=== PATIENT | female | born 1950 | race Caucasian/White ===

== ENCOUNTER 2022-06-10 13:14 | Inpatient (IN) | payer OTHER, MEDICAID ==
[~2022-06-10] VITALS: Ht 157.5 cm; Wt 69.7 kg
[2022-06-10 18:21] LABS: Basophils # (auto) 0 10 ^3/uL (0-0.2); Eosinophils # (auto) 0.4 10 ^3/uL (0-0.8); Eosinophils % (auto) 3.7 % (0.0-7.0); Hematocrit 42.1 % (36.0-46.0); Hemoglobin 13.8 g/dL (12.2-16.2); Lymphocytes # (auto) 1.3 10 ^3/uL (0.4-5.4); Lymphocytes % (auto) 11.8 % (10.0-50.0); Mean Corpuscular Hemoglobin 30.1 pg (28.0-32.0); Mean Corpuscular Hgb Conc. 32.8 g/dL (32.0-36.0); Mean Corpuscular Volume 91.7 fL (80.0-100.0); Monocytes # (auto) 0.9 10 ^3/uL (0-1.3); Monocytes % (auto) 8.4 % (0.0-12.0); Neutrophils # (auto) 8.5 10 ^3/uL (1.6-8.6); Neutrophils % (auto) 76.1 % (37.0-80.0); Nucleated Red Blood Cells % 0.2 %; Red Blood Cells 4.59 10^6/uL (4.0-5.20); Red Cell Distribution Width 14.1 % (11.8-14.3); White Blood Cell 11.1 10^3/uL (4.4-10.8)
[2022-06-10 18:34] LABS: Potassium 3.5 mmol/L (3.5-5.1)
[2022-06-10 18:41] LABS: Albumin 3.6 g/dL (3.4-5.0); Bilirubin, Total 0.5 mg/dL (0.2-1.0); Calcium 9.3 mg/dL (8.5-10.1); Total Protein 7.4 g/dL (6.4-8.2)
[2022-06-10 21:21] LABS: INR 0.96 (0.9-1.15); Partial Thromboplastin Time 24.9 sec (24.6-33.4)
[2022-06-10] MEDS ORDERED: HYDROcodone-ACET 5/325MG TAB PO PRN (23:30)
[2022-06-10] MEDS ORDERED: MORPHINE SULFATE INJ 2 MG/ml SYRG IV PRN (23:30)
[2022-06-10] MEDS ORDERED: NITROGLYCERIN 0.4 MG SL TAB SL PRN (23:30)
[2022-06-10] MEDS ORDERED: ONDANSETRON HCL 4 MG/2 ML VIAL IV PRN (23:30)
[2022-06-10] MEDS ORDERED: SOD CHL 0.45% 1,000 ML IV SCH (23:30)
[2022-06-10] MEDS ORDERED: cefTRIAXone 1GM/50ML D5W 50 ML IV ONE (23:30)
[2022-06-10] MEDS ORDERED: DOCUSATE SOD 100 MG CAP PO PRN (23:30)
[2022-06-10] MEDS ORDERED: ACETAMINOPHEN 325 MG TAB PO PRN (23:30)
[2022-06-11] VITALS (7 sets, daily range): BP systolic 111–136; BP diastolic 45–66
[2022-06-11] MEDS: MORPHINE SULFATE INJ 2 MG/ml SYRG IV PRN ×2 (01:23→10:59)
[2022-06-11] MEDS ORDERED: LEVOTHYROXINE SODIUM 88 MCG TAB PO SCH (07:00)
[2022-06-11] MEDS ORDERED: ENOXAPARIN SOD 40 MG/0.4 ML SYRINGE SC SCH (10:00)
[2022-06-11 11:39] LABS: Basophils # (auto) 0 10 ^3/uL (0-0.2); Basophils % (auto) 0.3 % (0.0-2.0); Eosinophils # (auto) 0 10 ^3/uL (0-0.8); Eosinophils % (auto) 0.6 % (0.0-7.0); Hematocrit 38.7 % (36.0-46.0); Lymphocytes # (auto) 1.2 10 ^3/uL (0.4-5.4); Lymphocytes % (auto) 15.6 % (10.0-50.0); Mean Corpuscular Hemoglobin 30.5 pg (28.0-32.0); Mean Corpuscular Hgb Conc. 33.7 g/dL (32.0-36.0); Mean Corpuscular Volume 90.6 fL (80.0-100.0); Monocytes # (auto) 0.5 10 ^3/uL (0-1.3); Monocytes % (auto) 6.7 % (0.0-12.0); Neutrophils # (auto) 5.8 10 ^3/uL (1.6-8.6); Neutrophils % (auto) 76.8 % (37.0-80.0); Red Blood Cells 4.27 10^6/uL (4.0-5.20); Red Cell Distribution Width 14.3 % (11.8-14.3); White Blood Cell 7.5 10^3/uL (4.4-10.8)
[2022-06-11 11:44] LABS: Albumin 3.1 g/dL (3.4-5.0); Calcium 8.8 mg/dL (8.5-10.1); Potassium 3.7 mmol/L (3.5-5.1)
[2022-06-11 11:49] LABS: BUN/Creatinine Ratio 19.3; Bilirubin, Total 0.8 mg/dL (0.2-1.0); Total Protein 6.7 g/dL (6.4-8.2)
[2022-06-11] MEDS ORDERED: cefTRIAXone 1GM/50ML D5W 50 ML IV SCH (22:00)
== END 2022-06-11 18:30 | disposition short-term general hospital (02) | DRG 563 ==
LOC: EDBD 13:14 → ER 13:14 → OVERFLOW 23:25 → EAST 23:42
PROVIDERS: ADMIT Nurse Practitioner Family; ATTEND Internal Medicine
DX: S82.141A Displaced bicondylar fracture of right tibia, initial encounter for closed fracture (principal); S52.501A Unspecified fracture of the lower end of right radius, initial encounter for closed fracture; S52.601A Unspecified fracture of lower end of right ulna, initial encounter for closed fracture; H91.90 Unspecified hearing loss, unspecified ear; D72.829 Elevated white blood cell count, unspecified; I12.9 Hypertensive chronic kidney disease with stage 1 through stage 4 chronic kidney disease, or unspecified chronic kidney disease; J43.9 Emphysema, unspecified; W18.2XXA Fall in (into) shower or empty bathtub, initial encounter; Z20.822 Contact with and (suspected) exposure to COVID-19; N18.9 Chronic kidney disease, unspecified; E78.5 Hyperlipidemia, unspecified; Z98.51 Tubal ligation status; Z90.49 Acquired absence of other specified parts of digestive tract; Y92.091 Bathroom in other non-institutional residence as the place of occurrence of the external cause; Z90.13 Acquired absence of bilateral breasts and nipples; Z85.3 Personal history of malignant neoplasm of breast; Y99.8 Other external cause status; Y93.E1 Activity, personal bathing and showering
CPT/HCPCS: 36415; 71045; 73110; 73502; 73562; 73700; 80053; 84443; 84484; 85025; 85610; 85730; 93005; G0378; J0696

== ENCOUNTER 2023-03-13 22:50 | Inpatient (IN) | payer OTHER, MEDICAID ==
[~2023-03-13] VITALS: Ht 167.6 cm; Wt 65.6 kg
[2023-03-13 23:30] VITALS: BP 122/54
[2023-03-14] MEDS ORDERED: ONDANSETRON HCL 4 MG/2 ML VIAL IV PRN (01:30)
[2023-03-14] MEDS ORDERED: ACETAMINOPHEN 325 MG TAB PO PRN (01:30)
[2023-03-14 03:00] LABS: Basophils # (auto) 0 10 ^3/uL (0-0.2); Basophils % (auto) 0.3 % (0.0-2.0); Eosinophils # (auto) 0.1 10 ^3/uL (0-0.8); Eosinophils % (auto) 0.7 % (0.0-7.0); Hematocrit 34.8 % (36.0-46.0); Hemoglobin 11.4 g/dL (12.2-16.2); Lymphocytes # (auto) 1.3 10 ^3/uL (0.4-5.4); Lymphocytes % (auto) 18.2 % (10.0-50.0); Mean Corpuscular Hemoglobin 30.1 pg (28.0-32.0); Mean Corpuscular Hgb Conc. 32.8 g/dL (32.0-36.0); Mean Corpuscular Volume 91.7 fL (80.0-100.0); Monocytes # (auto) 0.5 10 ^3/uL (0-1.3); Monocytes % (auto) 6.5 % (0.0-12.0); Neutrophils # (auto) 5.5 10 ^3/uL (1.6-8.6); Neutrophils % (auto) 74.3 % (37.0-80.0); Nucleated Red Blood Cells % 0.1 %; Red Cell Distribution Width 14.1 % (11.8-14.3); White Blood Cell 7.4 10^3/uL (4.4-10.8)
[2023-03-14 03:08] LABS: Alanine Aminotransferase 14 U/L (13-56); Anion Gap 7 (5-15); Aspartate Aminotransferase 17 U/L (15-37); Blood Urea Nitrogen 17 mg/dL (7-18); Calcium 8.7 mg/dL (8.5-10.1); Carbon Dioxide 28 mmol/L (21-32); Chloride 102 mmol/L (98-107); GFR African American 119 mL/min; GFR Non-African American 98 mL/min; Glucose 117 mg/dL (74-106); Potassium 3.9 mmol/L (3.5-5.1); Sodium 137 mmol/L (136-145)
[2023-03-14 03:11] LABS: Alkaline Phosphatase 35 U/L (45-117); Bilirubin, Total 0.7 mg/dL (0.2-1.0); Total Protein 6.5 g/dL (6.4-8.2)
[2023-03-14 03:15] LABS: INR 1.05 (0.9-1.15); Partial Thromboplastin Time 26.9 sec (24.6-33.4)
[2023-03-14 03:33] VITALS: BP 122/54
[2023-03-14] MEDS ORDERED: ACET-1156 PO (04:08)
[2023-03-14] MEDS ORDERED: HEP5000I IV (04:14)
[2023-03-14] MEDS ORDERED: LEVO88TA4 PO (04:14)
[2023-03-14] MEDS ORDERED: HYDR-4902 PO (04:14)
[2023-03-14] MEDS ORDERED: SENN1TAB14 PO (04:20)
[2023-03-14] MEDS ORDERED: TRIATAB3 OR (04:20)
[2023-03-14] MEDS ORDERED: ONDA4INJ5 IJ (04:20)
[2023-03-14 05:00] VITALS: BP 111/41
[2023-03-14] MEDS: HYDROcodone-ACET 5/325MG TAB PO PRN ×3 (06:05→22:03)
[2023-03-14] MEDS: LEVOTHYROXINE SODIUM 88 MCG TAB PO SCH (06:05)
[2023-03-14] MEDS: TRIAMTERENE/HCTZ 37.5/25 MG CAP/TAB PO SCH (10:00)
[2023-03-14] MEDS ORDERED: SODIUM CHLORIDE 0.9% 500 ML IV ONE (11:15)
[2023-03-14] MEDS: PANTOPRAZOLE 40 MG TAB PO SCH (11:32)
[2023-03-14] MEDS: MORPHINE SULFATE INJ 2 MG/ml SYRG IV PRN (16:42)
[2023-03-14 20:00] VITALS: BP 115/41
[2023-03-14 22:00] VITALS: BP 115/41
[2023-03-14] MEDS: ATORVASTATIN 20 MG TAB PO SCH (22:00)
[2023-03-15 05:00] VITALS: BP 102/40
[2023-03-15 05:57] LABS: Basophils # (auto) 0 10 ^3/uL (0-0.2); Basophils % (auto) 0.1 % (0.0-2.0); Eosinophils # (auto) 0.1 10 ^3/uL (0-0.8); Eosinophils % (auto) 1.4 % (0.0-7.0); Hematocrit 29.9 % (36.0-46.0); Hemoglobin 9.8 g/dL (12.2-16.2); Lymphocytes # (auto) 1.4 10 ^3/uL (0.4-5.4); Lymphocytes % (auto) 26.2 % (10.0-50.0); Mean Corpuscular Hemoglobin 30.1 pg (28.0-32.0); Mean Corpuscular Hgb Conc. 32.9 g/dL (32.0-36.0); Mean Corpuscular Volume 91.7 fL (80.0-100.0); Monocytes # (auto) 0.4 10 ^3/uL (0-1.3); Monocytes % (auto) 7.2 % (0.0-12.0); Neutrophils # (auto) 3.5 10 ^3/uL (1.6-8.6); Neutrophils % (auto) 65.1 % (37.0-80.0); Nucleated Red Blood Cells % 0.1 %; Red Blood Cells 3.26 10^6/uL (4.0-5.20); Red Cell Distribution Width 14.2 % (11.8-14.3); White Blood Cell 5.4 10^3/uL (4.4-10.8)
[2023-03-15 06:12] LABS: Potassium 3.6 mmol/L (3.5-5.1)
[2023-03-15 06:21] LABS: Albumin 2.6 g/dL (3.4-5.0); BUN/Creatinine Ratio 27.7 (10.0-20.0); Bilirubin, Total 0.3 mg/dL (0.2-1.0); Total Protein 5.6 g/dL (6.4-8.2)
[2023-03-15] MEDS: LEVOTHYROXINE SODIUM 88 MCG TAB PO SCH (06:35)
[2023-03-15] MEDS: HYDROcodone-ACET 5/325MG TAB PO PRN (06:35)
[2023-03-15 09:00] VITALS: BP 103/33
[2023-03-15] MEDS: PANTOPRAZOLE 40 MG TAB PO SCH (09:47)
[2023-03-15] MEDS: TRIAMTERENE/HCTZ 37.5/25 MG CAP/TAB PO SCH (09:48)
[2023-03-15] MEDS: LEVOTHYROXINE SODIUM 100 MCG/5 ML INJ IV SCH (09:48)
[2023-03-15] MEDS ORDERED: ERGOCALCIFEROL 50,000 UNIT(1.25MG) CAP PO SCH (10:00)
[2023-03-15 13:00] VITALS: BP 106/31
[2023-03-15 16:36] VITALS: BP 106/27
[2023-03-15 20:00] VITALS: BP 112/44
[2023-03-15] MEDS: ATORVASTATIN 20 MG TAB PO SCH (21:12)
[2023-03-16] VITALS (7 sets, daily range): BP systolic 103–118; BP diastolic 33–49
[2023-03-16] MEDS: HYDROcodone-ACET 5/325MG TAB PO PRN (06:06)
[2023-03-16 10:15] LABS: Basophils # (auto) 0 10 ^3/uL (0-0.2); Basophils % (auto) 0.1 % (0.0-2.0); Eosinophils # (auto) 0.1 10 ^3/uL (0-0.8); Eosinophils % (auto) 1.6 % (0.0-7.0); Hematocrit 28.9 % (36.0-46.0); Hemoglobin 9.5 g/dL (12.2-16.2); Lymphocytes # (auto) 1.6 10 ^3/uL (0.4-5.4); Lymphocytes % (auto) 23.6 % (10.0-50.0); Mean Corpuscular Hemoglobin 30.6 pg (28.0-32.0); Mean Corpuscular Volume 92.7 fL (80.0-100.0); Monocytes # (auto) 0.4 10 ^3/uL (0-1.3); Neutrophils # (auto) 4.7 10 ^3/uL (1.6-8.6); Neutrophils % (auto) 68.7 % (37.0-80.0); Nucleated Red Blood Cells % 0.1 %; Red Blood Cells 3.12 10^6/uL (4.0-5.20); White Blood Cell 6.9 10^3/uL (4.4-10.8)
[2023-03-16] MEDS: PANTOPRAZOLE 40 MG TAB PO SCH (10:15)
[2023-03-16] MEDS: TRIAMTERENE/HCTZ 37.5/25 MG CAP/TAB PO SCH (10:15)
[2023-03-16] MEDS: LEVOTHYROXINE SODIUM 100 MCG/5 ML INJ IV SCH (10:15)
[2023-03-16 10:26] LABS: BUN/Creatinine Ratio 25.4 (10.0-20.0); Calcium 8.2 mg/dL (8.5-10.1); Magnesium 2.2 mg/dL (1.6-2.6); Potassium 3.7 mmol/L (3.5-5.1)
[2023-03-16] MEDS: MORPHINE SULFATE INJ 2 MG/ml SYRG IV PRN (13:31)
[2023-03-16] MEDS ORDERED: ENOXAPARIN SOD 40 MG/0.4 ML SYRINGE SC ONE (17:45)
[2023-03-16] MEDS: ATORVASTATIN 20 MG TAB PO SCH (21:19)
[2023-03-17] VITALS (7 sets, daily range): BP systolic 97–149; BP diastolic 34–51
[2023-03-17] MEDS: HYDROcodone-ACET 5/325MG TAB PO PRN (08:23)
[2023-03-17] MEDS: TRIAMTERENE/HCTZ 37.5/25 MG CAP/TAB PO SCH (10:03)
[2023-03-17] MEDS: LEVOTHYROXINE SODIUM 100 MCG/5 ML INJ IV SCH (10:03)
[2023-03-17] MEDS: PANTOPRAZOLE 40 MG TAB PO SCH (10:03)
[2023-03-17 10:13] LABS: Basophils # (auto) 0 10 ^3/uL (0-0.2); Basophils % (auto) 0.1 % (0.0-2.0); Eosinophils # (auto) 0.1 10 ^3/uL (0-0.8); Eosinophils % (auto) 1.9 % (0.0-7.0); Hematocrit 30.7 % (36.0-46.0); Hemoglobin 10.3 g/dL (12.2-16.2); Lymphocytes # (auto) 1.5 10 ^3/uL (0.4-5.4); Mean Corpuscular Hemoglobin 30.6 pg (28.0-32.0); Mean Corpuscular Hgb Conc. 33.5 g/dL (32.0-36.0); Mean Corpuscular Volume 91.4 fL (80.0-100.0); Monocytes # (auto) 0.5 10 ^3/uL (0-1.3); Neutrophils # (auto) 4.8 10 ^3/uL (1.6-8.6); Nucleated Red Blood Cells % 0.1 %; Red Blood Cells 3.36 10^6/uL (4.0-5.20); Red Cell Distribution Width 14.2 % (11.8-14.3); White Blood Cell 6.9 10^3/uL (4.4-10.8)
[2023-03-17] MEDS: ENOXAPARIN SOD 40 MG/0.4 ML SYRINGE SC SCH (10:18)
[2023-03-17 10:33] LABS: Potassium 3.6 mmol/L (3.5-5.1)
[2023-03-17 10:43] LABS: BUN/Creatinine Ratio 30.9 (10.0-20.0); Calcium 8.3 mg/dL (8.5-10.1)
[2023-03-17] MEDS: ATORVASTATIN 20 MG TAB PO SCH (22:18)
[2023-03-18] MEDS: MORPHINE SULFATE INJ 2 MG/ml SYRG IV PRN ×2 (04:42→09:23)
[2023-03-18 05:00] VITALS: BP 127/52
[2023-03-18 08:00] VITALS: BP 122/57
[2023-03-18 09:23] VITALS: BP 122/57
[2023-03-18] MEDS: TRIAMTERENE/HCTZ 37.5/25 MG CAP/TAB PO SCH (09:23)
[2023-03-18] MEDS: LEVOTHYROXINE SODIUM 100 MCG/5 ML INJ IV SCH (09:23)
[2023-03-18] MEDS: ENOXAPARIN SOD 40 MG/0.4 ML SYRINGE SC SCH (09:23)
[2023-03-18] MEDS: PANTOPRAZOLE 40 MG TAB PO SCH (09:23)
== END 2023-03-18 11:10 | DRG 563 ==
LOC: TELE-EAST 23:43 → EAST 03-14 17:23
PROVIDERS: ADMIT Nurse Practitioner; ATTEND Internal Medicine
DX: S42.211A Unspecified displaced fracture of surgical neck of right humerus, initial encounter for closed fracture (principal); I12.9 Hypertensive chronic kidney disease with stage 1 through stage 4 chronic kidney disease, or unspecified chronic kidney disease; Z20.822 Contact with and (suspected) exposure to COVID-19; E03.9 Hypothyroidism, unspecified; J43.9 Emphysema, unspecified; W18.39XA Other fall on same level, initial encounter; M25.461 Effusion, right knee; N18.9 Chronic kidney disease, unspecified; E55.9 Vitamin D deficiency, unspecified; H91.90 Unspecified hearing loss, unspecified ear; Z90.49 Acquired absence of other specified parts of digestive tract; Z85.3 Personal history of malignant neoplasm of breast; Y93.89 Activity, other specified; Y92.89 Other specified places as the place of occurrence of the external cause; Y99.8 Other external cause status
CPT/HCPCS: 36415; 73200; 73721; 80048; 80053; 80061; 82306; 83735; 84439; 84443; 85025; 85610; 85730; 87426; 97110; 97163; G0378; J3490